=== PATIENT | female | born 1995 | race Two or more races ===

== ENCOUNTER 2019-07-03 21:47 | Emergency (ER) | payer SELFPAY ==
[~2019-07-03] VITALS: Ht 152.4 cm; Wt 60.3 kg
[2019-07-03 23:14] LABS: BASO # 0.1 x10^3/uL (0.0-0.2); BASO % 0 % (0-3); EOS % 0 % (0-3); HEMATOCRIT 38.9 % (36.0-47.0); HEMOGLOBIN 13.8 g/dL (12.0-15.5); LYMPH # 1.9 x10^3/uL (1.0-4.8); LYMPH % 11 % (24-48); MEAN CORPUSCULAR HEMOGLOBIN 32 pg (25-35); MEAN CORPUSCULAR HGB CONC 36 g/dL (31-37); MEAN CORPUSCULAR VOLUME 91 fL (79-100); MONO # 0.8 x10^3/uL (0.0-1.1); MONO % 5 % (0-9); NEUT # 13.8 x10^3/uL (1.8-7.7); NEUT % 83 % (31-73); PLATELET COUNT 321 x10^3/uL (140-400); RED BLOOD COUNT 4.26 x10^6/uL (3.50-5.40); RED CELL DISTRIBUTION WIDTH 13.3 % (11.5-14.5); WHITE BLOOD COUNT 16.6 x10^3/uL (4.0-11.0)
[2019-07-03 23:18] LABS: BILIRUBIN,URINE NEGATIVE (NEG); CLARITY,URINE CLOUDY; COLOR,URINE YELLOW; NITRITE,URINE NEGATIVE (NEG); PROTEIN,URINE NEGATIVE (NEG-TRACE)
[2019-07-03 23:25] LABS: BARBITURATES NEG (NEG); BENZODIAZEPINES NEG (NEG); CANNABINOIDS NEG (NEG); COCAINE NEG (NEG); METHADONE NEG (NEG); OPIATES NEG (NEG); PHENCYCLIDINE NEG (NEG)
[2019-07-03 23:26] LABS: AMPHETAMINE/METHAMPHETAMINE NEG (NEG)
[2019-07-03 23:27] LABS: BACTERIA,URINE MODERATE /HPF (0-FEW); SQUAMOUS EPITHELIAL CELL,UR OCC /LPF
[2019-07-03 23:31] LABS: CALCIUM 9.5 mg/dL (8.5-10.1); CREATININE 0.6 mg/dL (0.6-1.0); GFR 122.8; POTASSIUM 3.7 mmol/L (3.5-5.1)
[2019-07-03 23:37] LABS: ALBUMIN 4.2 g/dL (3.4-5.0); ALBUMIN/GLOBULIN RATIO 1.3 (1.0-1.7); TOTAL BILIRUBIN 0.2 mg/dL (0.2-1.0); TOTAL PROTEIN 7.5 g/dL (6.4-8.2)
[2019-07-03 23:55] LABS: % LYMPHS 14 % (24-48); % MONOS 4 % (0-10); % SEGS 82 % (35-66); ANISOCYTOSIS SLIGHT; PLT ESTIMATE INCREASED (ADEQUATE)
--- NOTE | 2019-07-04 00:08 | RAD ---
Study: Ultrasound OB less than 14 weeks with transvaginal sonography History: Vaginal bleeding. Known . Technique: Real-time grayscale and color Doppler sonographic images of the pelvis were performed transabdominally and transvaginally. Comparison: None available. Findings: The uterus measures 10 x 7.5 x 5.4 cm. Intrauterine gestational sac with undulating margins that measures 5.6 x 2.5 x 2.5 cm. Low level echoes scattered throughout the gestational sac. Yolk sac identified measuring 0.5 cm. pole with a crown-rump length measuring approximately 1.73 cm. This corresponds with an estimated gestational age of 8 weeks 1 day. Based on reported last menstrual period of 04/03/2019, clinical age is estimated at 13 weeks 0 days. No heart tones detected. The right ovary measures 2.2 x 3.5 x 2.8 cm. Doppler flow is maintained. The left ovary measures 1.8 x 2.3 x 2.1 cm. Doppler flow is maintained. No free fluid within the deep pelvis. Impression: 1. Irregular intrauterine gestational sac containing a pole with a crown-rump length measuring approximately 1.73 cm. No heart tones are detected. The collective findings are essentially confirmatory of a failed first trimester . Recommend short term follow-up and trending of the beta HCG to document expected evolution. 2. Normal Doppler flow to both ovaries. FOR INTERNAL CODING PURPOSES RESULT CODE: (C) Significant findings were discussed with Sabiha Maravilla by telephone on 07/04/2019 at 0005 hours. Electronically signed by: ENDER HERMOSILLO MD (07/04/2019 12:05 AM) [facility]
[2019-07-04] MEDS ORDERED: MORPHINE SULFATE 10 MG/ML VIAL. IV ONE (01:00)
[2019-07-04] MEDS ORDERED: HYDR-3164 PO (01:03)
--- NOTE | 2019-07-04 01:04 | PHYS DOC ---
Past Medical History Past Medical History: No Pertinent History Past Surgical History: No Surgical History Alcohol Use: None Drug Use: None Adult General Chief Complaint Chief Complaint: VAGINAL BLEEDING [facility] HPI Patient is a 24 year old Azeri-speaking female 1 para 0 currently 10 weeks per her statement to presents to the ED today with vaginal bleeding that began today. Patient is also complaining of mild abdominal cramping. Denies any nausea vomiting. She states she's been following up with [facility] for her . Review of Systems Review of Systems Constitutional: Denies fever or chills [] Eyes: Denies change in visual acuity, redness, or eye pain [] HENT: Denies nasal congestion or sore throat [] Respiratory: Denies cough or shortness of breath [] Cardiovascular: No additional information not addressed in HPI [] GI: Reports vaginal bleeding in and abdominal pain, denies nausea, vomiting, bloody stools or diarrhea [] : Denies dysuria or hematuria [] Musculoskeletal: Denies back pain or joint pain [] Integument: Denies rash or skin lesions [] Neurologic: Denies headache, focal weakness or sensory changes [] All other systems were reviewed and found to be within normal limits, except as documented in this note. Current Medications Current Medications Current Medications Medications (Trade) Dose Ordered Sig/Kalpana Start Time Stop Time Status Last Admin Dose Admin Morphine Sulfate (Morphine Sulfate) 5 mg 1X ONCE 07/04/19 01:00 07/04/19 01:01 07/04/19 00:47 5 MG Allergies Allergies Allergies Coded Allergies Type Severity Reaction Last Updated Verified No Known Drug Allergies 07/03/19 No Physical Exam Physical Exam Constitutional: Well developed, well nourished, no acute distress, non-toxic appearance. [] HENT: Normocephalic, atraumatic, bilateral external ears normal, oropharynx m oist, no oral exudates, nose normal. [] Eyes: PERRLA, EOMI, conjunctiva normal, no discharge. [] Neck: Normal range of motion, no tenderness, supple, no stridor. [] Cardiovascular:Heart rate regular rhythm, no murmur [] Lungs & Thorax: Bilateral breath sounds clear to auscultation [] Abdomen: Bowel sounds normal, soft, no tenderness, no masses, no pulsatile masses. [] Pelvic exam External pelvic appears normal, cervix not visualized because of mild amount of blood and blood clots in the vaginal vault which were removed with forceps and long Q-tips. No CMT, diffuse tenderness to bilateral adnexal regions. Skin: Warm, dry, no erythema, no rash. [] Back: No tenderness, no CVA tenderness. [] Extremities: No tenderness, no cyanosis, no clubbing, ROM intact, no edema. [] Neurologic: Alert and oriented X 3, normal motor function, normal sensory function, no focal deficits noted. [] Psychologic: Affect normal, judgement normal, mood normal. [] Current Patient Data Vital Signs Vital Signs Date Time Temp Pulse Resp B/P (MAP) Pulse Ox O2 Delivery O2 Flow Rate FiO2 07/04/19 00:47 Room Air 07/03/19 22:30 98.1 75 14 120/75 (90) 100 98.1 Lab Values Laboratory Tests Test 07/03/19 22:55 07/03/19 23:00 07/03/19 23:06 White Blood Count 16.6 x10^3/uL (4.0-11.0) H Red Blood Count 4.26 x10^6/uL (3.50-5.40) Hemoglobin 13.8 g/dL (12.0-15.5) Hematocrit 38.9 % (36.0-47.0) Mean Corpuscular Volume 91 fL (79-100) Mean Corpuscular Hemoglobin 32 pg (25-35) Mean Corpuscular Hemoglobin Concent 36 g/dL (31-37) Red Cell Distribution Width 13.3 % (11.5-14.5) Platelet Count 321 x10^3/uL (140-400) Neutrophils (%) (Auto) 83 % (31-73) H Lymphocytes (%) (Auto) 11 % (24-48) L Monocytes (%) (Auto) 5 % (0-9) Eosinophils (%) (Auto) 0 % (0-3) Basophils (%) (Auto) 0 % (0-3) Neutrophils # (Auto) 13.8 x10^3/uL (1.8-7.7) H Lymphocytes # (Auto) 1.9 x10^3/uL (1.0-4.8) Monocytes # (Auto) 0.8 x10^3/uL (0.0-1.1) Eosinophils # (Auto) 0.0 x10^3/uL (0.0-0.7) Basophils # (Auto) 0.1 x10^3/uL (0.0-0.2) Segmented Neutrophils % 82 % (35-66) H Lymphocytes % 14 % (24-48) L Monocytes % 4 % (0-10) Platelet Estimate Increased (ADEQUATE) Anisocytosis Slight Maternal Serum HCG Beta Subunit 617379 mIU/mL (0-5) H Sodium Level 139 mmol/L (136-145) Potassium Level 3.7 mmol/L (3.5-5.1) Chloride Level 103 mmol/L (98-107) Carbon Dioxide Level 24 mmol/L (21-32) Anion Gap 12 (6-14) Blood Urea Nitrogen 13 mg/dL (7-20) Creatinine 0.6 mg/dL (0.6-1.0) Estimated GFR (Cockcroft-Gault) 122.8 BUN/Creatinine Ratio 22 (6-20) H Glucose Level 99 mg/dL (70-99) Calcium Level 9.5 mg/dL (8.5-10.1) Total Bilirubin 0.2 mg/dL (0.2-1.0) Aspartate Amino Transferase (AST) 12 U/L (15-37) L Alanine Aminotransferase (ALT) 21 U/L (14-59) Alkaline Phosphatase 76 U/L (46-116) Total Protein 7.5 g/dL (6.4-8.2) Albumin 4.2 g/dL (3.4-5.0) Albumin/Globulin Ratio 1.3 (1.0-1.7) Ethyl Alcohol Level < 10 mg/dL (0-10) Urine Color Yellow Urine Clarity Cloudy Urine pH 7.0 Urine Specific [place] 1.025 Urine Protein Negative mg/dL (NEG-TRACE) Urine Glucose (UA) Negative mg/dL (NEG) Urine Ketones (Stick) Negative mg/dL (NEG) Urine Blood Large (NEG) Urine Nitrite Negative (NEG) Urine Bilirubin Negative (NEG) Urine Urobilinogen Dipstick 1.0 mg/dL (0.2 mg/dL) Urine Leukocyte Esterase Negative (NEG) Urine RBC 11-20 /HPF (0-2) Urine WBC 1-4 /HPF (0-4) Urine Squamous Epithelial Cells Occ /LPF Urine Bacteria Moderate /HPF (0-FEW) Urine Mucus Mod /LPF Urine Opiates Screen Neg (NEG) Urine Methadone Screen Neg (NEG) Urine Barbiturates Neg (NEG) Urine Phencyclidine Screen Neg (NEG) Urine Amphetamine/Methamphetamine Neg (NEG) Urine Benzodiazepines Screen Neg (NEG) Urine Cocaine Screen Neg (NEG) Urine Cannabinoids Screen Neg (NEG) Urine Ethyl Alcohol Neg (NEG) POC Urine HCG, Qualitative Hcg positive (Negative) Laboratory Tests 07/03/19 22:55 Laboratory Tests 07/03/19 22:55 EKG EKG [] Radiology/Procedures Radiology/Procedures []PROCEDURE: OB <14 WKS W/TV Study: Ultrasound OB less than 14 weeks with transvaginal sonography History: Vaginal bleeding. Known . Technique: Real-time grayscale and color Doppler sonographic images of the pelvis were performed transabdominally and transvaginally. Comparison: None available. Findings: The uterus measures 10 x 7.5 x 5.4 cm. Intrauterine gestational sac with undulating margins that measures 5.6 x 2.5 x 2.5 cm. Low level echoes scattered throughout the gestational sac. Yolk sac identified measuring 0.5 cm. pole with a crown-rump length measuring approximately 1.73 cm. This corresponds with an estimated gestational age of 8 weeks 1 day. Based on reported last menstrual period of 04/03/2019, clinical age is estimated at 13 weeks 0 days. No heart tones detected. The right ovary measures 2.2 x 3.5 x 2.8 cm. Doppler flow is maintained. The left ovary measures 1.8 x 2.3 x 2.1 cm. Doppler flow is maintained. No free fluid within the deep pelvis. Impression: 1. Irregular intrauterine gestational sac containing a pole with a crown-rump length measuring approximately 1.73 cm. No heart tones are detected. The collective findings are essentially confirmatory of a failed first trimester . Recommend short term follow-up and trending of the beta HCG to document expected evolution. 2. Normal Doppler flow to both ovaries. FOR INTERNAL CODING PURPOSES RESULT CODE: (C) Significant findings were discussed with Jasmin Maravilla by telephone on 07/04/2019 at 0005 hours. Electronically signed by: ENDER HERMOSILLO MD (07/04/2019 12:05 AM) [facility] DICTATED and SIGNED BY: ENDER HERMOSILLO MD DATE: 07/04/19 0005 Course & Med Decision Making Course & Med Decision Making Pertinent Labs and Imaging studies reviewed. (See chart for details) This is a 24-year-old female patient who presents to the ED today with vaginal bleeding in . She is a 1 para 0 currently 10 weeks per her statement. Positive urine hCG, beta-hCG 121,850. CBC with a WBC of 16.6, CMP would not acute findings. Urine negative for nitrites or leukocytes. On pelvic exam patient had mild amount of blood and blood closed in the vaginal vault which were removed with forceps by me. The bleeding had slowed down. Blood group all positive OB ultrasound- noted for failed first trimester . Recommend short term follow-up and trending of the beta HCG to document expected evolution. Normal Doppler flow to both ovaries. Results are communicated to patient, she is in the ED with her aunt who is interpreting for [place]zeri. Patient was instructed to follow up with [facility] tomorrow and they can do a repeat beta hCG between tomorrow and the next day. She was given return precautions. Discharged with hydrocodone for pain. Dragon Disclaimer Dragon Disclaimer This electronic medical record was generated, in whole or in part, using a voice recognition dictation system. Departure Departure Impression: Primary Impression: demise Additional Impression: Miscarriage Disposition: 01 HOME, SELF-CARE Condition: STABLE Referrals: UNKNOWN PCP NAME (PCP) Call [facility] tomorrow and set up a follow-up appointment in the next 1-2 days Patient Instructions: Intrauterine Demise, Miscarriage, [id number] Additional Instructions: You were elevated in the emergency room and noted to have demise and going through a miscarriage process. Your beta hCG was 121,850. Please contact [facility] tomorrow and follow-up for repeat lab work. Maintain bedrest. Take the prescribed pain medicine as needed for pain. Come back to the ED at any point symptoms worsen. Expect mild to moderate bleeding with the miscarriage for the next 1 week. Scripts Hydrocodone/Apap 5-325 (NORCO 5-325 TABLET) 1 Each Tablet 1 TAB PO Q6HRS, #20 TAB Prov: JASMIN MARAVILLA [employer]OWER 07/04/19 Problem Qualifiers MUTUNGAJASMIN SHELLFISH GROWER Jul 04, 2019 01:04
[2019-07-04 01:33] VITALS: BP 106/58
[2019-07-04] MEDS ORDERED: MORPHINE PF 10 MG/10 ML AMPUL. ONE (14:15)
[2019-07-04] MEDS ORDERED: fentaNYL PF VIAL 100 MCG/2 ML VIAL ONE (14:15)
== END 2019-07-04 01:50 | disposition home or self-care (01) ==
LOC: ER 21:47
DX: O03.9 Complete or unspecified spontaneous abortion without complication (principal); Z3A.10 10 weeks gestation of pregnancy
CPT/HCPCS: 36415; 76801; 76817; 80053; 80307; 81001; 81025; 84702; 85007; 85025; 86850; 86900; 86901; 87086; 96374; 99285; G0480; J2270; J2274; J3010